=== PATIENT | male | born 1975 ===

== ENCOUNTER 2024-12-22 18:54 | Emergency (ER) | payer OTHER ==
[2024-12-22] MEDS: Iopamidol 755 Mg/ML 100 ML Bottle IVPUSH ONE (18:51)
[~2024-12-22 18:54] MED LIST: Sodium Chloride 0.9% 10 ML Syringe FLUSH PRN
[2024-12-22 19:20] LABS: BASOPHILS PERCENT AUTO 0.5 % (0.0-1.0); EOSINOPHILS PERCENT AUTO 1.1 % (1.0-3.0); LYMPHOCYTES PERCENT AUTO 32.5 % (20.5-50.1); MONOCYTES PERCENT AUTO 8.7 % (2-8); NEUTROPHILS PERCENT AUTO 57.2 % (42.2-75.2); PLATELET COUNT,PLT 234 10^3/uL (150-450); RED BLOOD CELL COUNT 4.77 10^6/uL (4.6-6.2); WHITE BLOOD CELL COUNT,WBC 9.6 10^3/uL (5.0-10.0)
[2024-12-22 19:42] LABS: INR 1.0 (0.9-1.2); PTT,PARTIAL THROMBOPLSTIN TIME 26.0 SEC (22.0-34.0)
[2024-12-22 19:45] LABS: B-TYPE NATRIURETIC PEPTIDE,BNP 8 pg/ml (0-100)
[2024-12-22 19:47] LABS: BLOOD UREA NITROGEN,BUN 10 mg/dL (7-18); CARBON DIOXIDE,CO2 24 mmol/L (21-32); CREATININE 0.71 mg/dL (0.70-1.30); GLUCOSE RANDOM 94 mg/dL (70-99)
[2024-12-22 19:48] LABS: A/G RATIO 1.1; ALANINE AMINOTRANSFERASE,ALT 19 U/L (16-63); ASPARTATE AMNIOTRANSFERASE,AST 31 U/L (15-37); BILIRUBIN TOTAL 0.6 mg/dL (0.2-1.0); ETHANOL BLOOD MEDICAL 47 mg/dL (0); PROTEIN TOTAL,TP 7.5 g/dL (6.4-8.2)
[2024-12-22 19:56] LABS: CHLORIDE,CL 95 mmol/L (98-107); ESTIMATED GFR 111 mL/min (>=60); POTASSIUM,K 5.1 mmol/L (3.5-5.1); SODIUM,NA 129 mmol/L (136-145)
== END 2024-12-22 19:52 ==
LOC: DL.ED 18:54
DX: R53.1 Weakness (principal); Z86.73 Personal history of transient ischemic attack (TIA), and cerebral infarction without residual deficits
CPT/HCPCS: 36415; 37195; 70450; 70496; 70498; 80053; 80307; 83735; 83880; 84484; 85025; 85610; 85730; 86140; 93005; 99285; J3101; Q9967; 93010